=== PATIENT | female | born 1950 | race Hispanic/Latino ===

== ENCOUNTER 2019-01-29 10:10 | Emergency (ER) | payer MEDICARE, MEDICAID ==
--- NOTE | 2019-01-29 12:09 | Emergency Department Report ---
ED General Adult HPI - General Chief complaint: Cardiac Arrest/CPR Stated complaint: CARDIAC ARREST Time Seen by Provider: 01/29/19 12:04 Source: EMS Mode of arrival: Stretcher Limitations: Altered Mental Status - History of Present Illness Initial comments: The patient presents to the emergency department via EMS for cardiac arrest. Per EMS the last time the patient was seen was last night prior to going to sleep. Upon arrival the patient was asystole and ATLS protocol was followed with placement of an airway -: unknown Improves with: none Worsens with: none ED Review of Systems ROS: Stated complaint: CARDIAC ARREST Other details as noted in HPI Comment: Unobtainable due to pts medical conditions ED Past Medical Hx - Past Medical History Previous Medical History?: Yes Hx Hypertension: Yes Hx Congestive Heart Failure: Yes Hx Deep Vein Thrombosis: Yes Hx GERD: Yes Additional medical history: CHF, Thyroid disease, elevated cholesteral, - Surgical History Past Surgical History?: No - Social History Smoking Status: Current Some Day Smoker ED Physical Exam - General Limitations: Altered Mental Status General appearance: other (asystole with airway in place) - Head Head exam: Present: atraumatic, normocephalic - Eye Eye exam: Absent: PERRL, EOMI - ENT ENT exam: Present: mucous membranes dry - Neck Neck exam: Present: normal inspection - Respiratory Respiratory exam: Present: other (bilateral breath sounds with BVM) - Cardiovascular Cardiovascular Exam: Present: other (asystole) - GI/Abdominal GI/Abdominal exam: Present: soft. Absent: distended - Extremities Exam Extremities exam: Present: other (lower extremities are stiff on exam) - Neurological Exam Neurological exam: Present: other (GCS of 3) - Psychiatric Psychiatric exam: Present: other (not able to assess due to the patient's condition) - Skin Skin exam: Present: dry, other (patient is cold to touch) ED Medical Decision Making - Medical Decision Making Time of was 10:09 a.m. Critical care attestation.: If time is entered above; I have spent that time in minutes in the direct care of this critically ill patient, excluding procedure time. ED Disposition Clinical Impression: Cardiac arrest Disposition: DC-[id number] Is pt being admited?: No Does the pt Need Aspirin: No Condition: Stable
== END 2019-01-29 14:23 ==
LOC: ED 10:10
DX: I46.9 Cardiac arrest, cause unspecified (principal); I11.0 Hypertensive heart disease with heart failure; I50.9 Heart failure, unspecified; K21.9 Gastro-esophageal reflux disease without esophagitis; F17.200 Nicotine dependence, unspecified, uncomplicated; Z86.718 Personal history of other venous thrombosis and embolism; Z98.890 Other specified postprocedural states
CPT/HCPCS: 92950